=== PATIENT | female | born 1995 | race Caucasian/White ===

== ENCOUNTER 2023-01-24 23:32 | Inpatient (IN) | payer BC ==
[2023-01-24] MEDS ORDERED: Oxytocin/Normal Saline 30 UNIT/500 ML BAG IV SCH (23:45)
[2023-01-24] MEDS ORDERED: Sodium Chloride 0.9% 10 ML Syringe FLUSH PRN (23:50)
[2023-01-24] MEDS ORDERED: Lactated Ringers 1,000 ML IV ONE (23:50)
[2023-01-24] MEDS ORDERED: Misoprostol 400 MCG (4 X 100 MCG TAB) RECTAL PRN (23:50)
[2023-01-24] MEDS ORDERED: Carboprost Tromethamine 250 MCG/1 ML Amp IM PRN (23:50)
[2023-01-24] MEDS ORDERED: Lidocaine 1% 30 ML SDV INJECT PRN (23:50)
[2023-01-24] MEDS ORDERED: Ondansetron 4 MG/2 ML SDV IVPUSH PRN (23:50)
[2023-01-24] MEDS ORDERED: Tranexamic Acid 1,000 MG in Sodium Chloride 0.9% 100 ML IV PRN (23:50)
[2023-01-24] MEDS ORDERED: Penicillin G Potassium 5 MILLUNITS in Sodium Chloride 0.9% 100 ML IV ONE (23:50)
[2023-01-24] MEDS ORDERED: Acetaminophen 325 MG Tab PO PRN (23:50)
[2023-01-24] MEDS ORDERED: Methylergonovine 0.2 MG/1 ML Amp IM PRN (23:50)
[2023-01-25 00:04] LABS: HEMATOCRIT 37.9 % (37.0-47.0); HEMOGLOBIN 12.7 g/dL (12.0-16.0); MEAN CORPUSCULAR HEMOGLOBIN 29.7 pg (27.0-34.0); MEAN CORPUSCULAR HGB CONC 33.5 g/dL (33.0-35.0); MEAN CORPUSCULAR VOLUME 88.6 fL (80-100); RED BLOOD CELL COUNT 4.28 10^6/uL (4.2-5.4)
[2023-01-25] MEDS: Lactated Ringers 1,000 ML IV SCH ×4 (00:20→16:25)
[2023-01-25] MEDS ORDERED: Oxytocin 10 Units/1 ML SDV IM PRN (01:10)
[2023-01-25] MEDS ORDERED: Methylergonovine 0.2 MG Tab PO PRN (01:10)
[2023-01-25] MEDS ORDERED: Citric Acid/Sodium Citrate Solution 30 ML Cup PO ONE (01:10)
[2023-01-25] MEDS ORDERED: Oxytocin 10 Units/1 ML SDV ONE (01:11)
[2023-01-25] MEDS ORDERED: ceFAZolin 2 GM Vial ONE (01:11)
[2023-01-25] MEDS ORDERED: Ondansetron 4 MG/2 ML SDV ONE (01:14)
[2023-01-25] MEDS ORDERED: Dexamethasone 4 MG/ML SDV ONE (01:15)
[2023-01-25] MEDS ORDERED: Ketorolac 30 MG/ML SDV ONE (01:15)
[2023-01-25] MEDS ORDERED: Oxytocin/Normal Saline 30 UNIT/500 ML BAG IV SCH (01:15)
[2023-01-25] MEDS ORDERED: Lactated Ringers 1,000 ML IV SCH ×2 (01:15)
[2023-01-25] MEDS ORDERED: Oxytocin/Normal Saline 30 UNIT/500 ML BAG ONE (01:22)
[2023-01-25] MEDS ORDERED: Misoprostol 400 MCG (4 X 100 MCG TAB) RECTAL PRN (02:47)
[2023-01-25] MEDS ORDERED: Ondansetron 4 MG/2 ML SDV IVPUSH PRN (02:47)
[2023-01-25] MEDS ORDERED: Carboprost Tromethamine 250 MCG/1 ML Amp IM PRN (02:47)
[2023-01-25] MEDS ORDERED: Acetaminophen/oxyCODONE 325-5 MG Tab PO PRN (02:47)
[2023-01-25] MEDS ORDERED: ePHEDrine 50 MG/ML SDV IVPUSH PRN (02:47)
[2023-01-25] MEDS ORDERED: Tranexamic Acid 1,000 MG in Sodium Chloride 0.9% 100 ML IV PRN ×2 (02:47→03:00)
[2023-01-25] MEDS ORDERED: diphenhydrAMINE 50 MG/ML SDV IVPUSH PRN (02:47)
[2023-01-25] MEDS ORDERED: Naloxone 2 MG/2 ML Syringe IVPUSH PRN (02:47)
[2023-01-25] MEDS ORDERED: Methylergonovine 0.2 MG/1 ML Amp IM PRN (02:47)
[2023-01-25] MEDS ORDERED: Acetaminophen 325 MG Tab PO PRN (02:47)
[2023-01-25] MEDS ORDERED: Promethazine 25 MG/ML SDV IM ONE (03:32)
[2023-01-25] MEDS ORDERED: Penicillin G Potassium 3 MILLUNITS in Sodium Chloride 0.9% 100 ML IV SCH (04:00)
[2023-01-25] MEDS ORDERED: ceFAZolin 1 GM Vial IVPUSH SCH (06:00)
[2023-01-25] MEDS: Docusate Sodium 100 MG Cap PO PRN (08:18)
[2023-01-25] MEDS: Prenatal Multivitamin with Calcium/Folic Acid/Iron Tab PO SCH (08:18)
[2023-01-25] MEDS: Ferrous Sulfate 325 MG Tab PO SCH (08:18)
[2023-01-25] MEDS: Levothyroxine 100 MCG Tab PO SCH (08:18)
[2023-01-25] MEDS: Simethicone 80 MG Tab.Chew PO SCH ×4 (08:23→22:01)
[2023-01-25] MEDS ORDERED: Metoclopramide 10 MG/2 ML SDV IM ONE (09:12)
[2023-01-25] MEDS ORDERED: Metoclopramide 10 MG/2 ML SDV IVPUSH ONE (09:40)
[2023-01-25] MEDS: Ketorolac 30 MG/ML SDV IVPUSH SCH ×3 (10:19→22:50)
[2023-01-25] MEDS ORDERED: Bupivacaine 0.75%/D5W 2 ML Amp INJECT ONE (12:59)
[2023-01-25] MEDS ORDERED: Phenylephrine 1% 10 MG/ML SDV IV ONE (12:59)
[2023-01-25] MEDS ORDERED: Morphine PF 10 MG/10 ML SDV IV ONE (12:59)
[2023-01-25] MEDS ORDERED: Ketorolac 30 MG/ML SDV IVPUSH ONE (12:59)
[2023-01-25] MEDS ORDERED: Ondansetron 4 MG/2 ML SDV IV ONE (12:59)
[2023-01-25] MEDS ORDERED: Dexamethasone 4 MG/ML SDV IV ONE (12:59)
[2023-01-25] MEDS ORDERED: Promethazine 25 MG/ML SDV IM PRN (13:09)
[2023-01-26] MEDS: Levothyroxine 100 MCG Tab PO SCH (05:55)
[2023-01-26 05:57] LABS: HEMATOCRIT 32.1 % (37.0-47.0); HEMOGLOBIN 10.5 g/dL (12.0-16.0); MEAN CORPUSCULAR HEMOGLOBIN 29.7 pg (27.0-34.0); MEAN CORPUSCULAR HGB CONC 32.7 g/dL (33.0-35.0); MEAN CORPUSCULAR VOLUME 90.7 fL (80-100); RED BLOOD CELL COUNT 3.54 10^6/uL (4.2-5.4); WHITE BLOOD CELL COUNT,WBC 10.9 10^3/uL (5.0-10.0)
[2023-01-26] MEDS: Ferrous Sulfate 325 MG Tab PO SCH (08:09)
[2023-01-26] MEDS: Docusate Sodium 100 MG Cap PO PRN (08:09)
[2023-01-26] MEDS: Simethicone 80 MG Tab.Chew PO SCH ×4 (08:09→21:31)
[2023-01-26] MEDS: Ibuprofen 800 MG Tab PO PRN ×2 (08:09→16:13)
[2023-01-26] MEDS: Prenatal Multivitamin with Calcium/Folic Acid/Iron Tab PO SCH (08:09)
[2023-01-26] MEDS: Acetaminophen/oxyCODONE 325-5 MG Tab PO PRN ×3 (12:16→21:39)
[2023-01-27] MEDS: Levothyroxine 100 MCG Tab PO SCH (06:05)
[2023-01-27] MEDS: Acetaminophen/oxyCODONE 325-5 MG Tab PO PRN (06:06)
[2023-01-27] MEDS: Ibuprofen 800 MG Tab PO PRN (06:08)
[2023-01-27] MEDS: Prenatal Multivitamin with Calcium/Folic Acid/Iron Tab PO SCH (08:15)
[2023-01-27] MEDS: Docusate Sodium 100 MG Cap PO PRN (08:16)
[2023-01-27] MEDS: Ferrous Sulfate 325 MG Tab PO SCH (08:16)
[2023-01-27] MEDS: Simethicone 80 MG Tab.Chew PO SCH (08:17)
[2023-01-27 08:52] VITALS: BP 109/75; PULSE 71
== END 2023-01-27 13:00 | disposition home or self-care (01) | DRG 540 ==
LOC: DL.OBCHECK 23:32 → UNDOADMOB 23:51 → DL.OB 23:51 → UNDOADMOB 23:54 → DL.OB 23:54 → OBSVTOIN 01-25 02:06
PROVIDERS: ADMIT Family Medicine; ATTEND Family Medicine
PROC: 10D00Z1 Extraction of Products of Conception, Low, Open Approach (ICD-10-PCS; principal; 2023-01-25)
DX: O42.02 Full-term premature rupture of membranes, onset of labor within 24 hours of rupture (principal); O99.284 Endocrine, nutritional and metabolic diseases complicating childbirth; E03.8 Other specified hypothyroidism; O32.1XX0 Maternal care for breech presentation, not applicable or unspecified; O99.824 Streptococcus B carrier state complicating childbirth; O99.02 Anemia complicating childbirth; D50.9 Iron deficiency anemia, unspecified; E06.3 Autoimmune thyroiditis; Z3A.38 38 weeks gestation of pregnancy; Z37.0 Single live birth; Z79.899 Other long term (current) drug therapy; D62 Acute posthemorrhagic anemia
CPT/HCPCS: 01961; 36415; 51702; 76815; 85027; 86850; 86900; 86901; A9270-GY; J1100; J1885; J2270; J2370; J2405; J2540; J2550; J2590; J2765; J3490; J7120